=== PATIENT | male | born 1975 | race Hispanic/Latino ===

== ENCOUNTER 2025-01-24 15:38 | Inpatient (IN) | payer BC, OTHER ==
[~2025-01-24 15:38] MED LIST: Iopamidol-370 76% 500 ML MDV (1 ML CHARGE) ONE
[2025-01-24] MEDS ORDERED: cefTRIAXone (ROCEPHIN) 2 GM VIAL ONE (15:54)
[2025-01-24] MEDS ORDERED: Pantoprazole 40 MG VIAL ONE (15:54)
[2025-01-24] MEDS ORDERED: Octreotide Acetate 1,250 MCG in Sodium Chloride 0.9% 250 ML 250 ML IVPB SCH (16:15)
[2025-01-24 16:22] LABS: #Basophils Less than 0.03 10x3/uL (0.0-0.2); #Eosinophils 0.04 10x3/uL (0.0-0.7); #Monocytes 1.18 10x3/uL (0.11-0.59); #Neutrophils 8.19 10x3/uL (1.40-6.50); %Basophils 0.2 % (0.0-1.0); %Eosinophils 0.4 % (0.0-10.0); %Lymphocytes 9.6 % (21.0-51.0); %Monocytes 11.0 % (0.0-10.0); %Neutrophils 76.6 % (42.0-75.0); Hematocrit 19.2 % (42.0-52.0); Hemoglobin 5.2 g/dL (14.0-18.0); Mean Corpuscular Hemoglobin 24.4 pg (27.0-31.0); Mean Corpuscular Volume 90.1 fL (78.0-98.0); Platelet Count 117 10x3/uL (130-400); Red Blood Cell (RBC) Count 2.13 mill/uL (4.70-6.10); White Blood Cell (WBC) Count 10.68 10x3/uL (4.8-10.8)
[2025-01-24 16:23] LABS: INR-International Normal Ratio 2.2; Prothrombin Time 24.4 sec (12.0-14.7)
[2025-01-24 16:24] LABS: PTT 38.9 sec (22.9-36.1)
[2025-01-24 16:54] LABS: Anisocytosis SLIGHT = 6-15 cells HPF (0-5); Burr Cells SLIGHT = 2-5 cells HPF (0-1); Macrocytosis MODERATE=16-30 cells HPF (0-5); Microcytosis SLIGHT = 6-15 cells HPF (0-5); Ovalocytes SLIGHT = 2-5 cells HPF (0-1); Platelet Adequacy Comment Platelets Decreased; Polychromasia SLIGHT = 2-3 cells HPF (0-2); Reflex for Review?? YES; Schistocytes SLIGHT = 2-5 cells HPF (0-1)
[2025-01-24 17:04] LABS: ALT (SGPT) 28 U/L (Less than 45); AST (SGOT) 53 U/L (11-34); Albumin 1.7 g/dL (3.1-4.5); Alkaline Phosphatase 139 U/L (40-110); Anion Gap 36 mmol/L (10-20); BUN (Urea Nitrogen) 29 mg/dL (8.4-25.7); Bilirubin, Total 1.7 mg/dL (0.3-1.2); Calc. Creatinine Clearance 0 mL/min (70-130); Calcium 7.3 mg/dL (7.8-10.44); Carbon Dioxide Less than 8 mmol/L (22-29); Chloride 98 mmol/L (98-107); Globulin 2.6 g/dL (2.4-3.5); Glucose 336 mg/dL (70-105); Lipase 111 U/L (8-78); Magnesium 2.2 mg/dL (1.6-2.6); Potassium 3.7 mmol/L (3.5-5.1); Sodium 137 mmol/L (136-145)
[2025-01-24] MEDS ORDERED: Ondansetron PF 4 MG/2 ML Vial ONE ×2 (17:07→19:38)
[2025-01-24] MEDS ORDERED: Sodium Bicarb 50 MEQ/50 ML Abboject 8.4% SYRINGE ONE (17:26)
[2025-01-24 17:27] LABS: Actual Bicarbonate (HCO3a) 6.7 mEq/L (22-28); CO2 Tension 31.2 mmHg (35.0-45.0); O2 Tension (PaO2), arterial 82.9 mmHg (80.0-100.0); pH, Arterial 6.950 (7.35-7.45)
[2025-01-24 17:28] LABS: Base Excess (BEa) -23.9 mEq/L (-2.0 to +3.0); Calcium, Ionized (arterial) 0.93 mmol/L (1.12-1.30); Hematocrit-ABG 26 % (42.0-52.0); Hemoglobin (Hb) 8.8 g/dL (14.0-18.0); Potassium - ABG Lab 6.30 mmol/L (3.70-5.30)
[2025-01-24 17:29] LABS: Analyzer IN Cardio ER; Puncture Site Right Brachial art
[2025-01-24] MEDS ORDERED: Metoclopramide HCl 10 MG (2 mL) VIAL ONE (17:44)
[2025-01-24] MEDS ORDERED: Norepinephrine 8 MG/0.9% NS 250 ML ONE (18:06)
[2025-01-24] MEDS ORDERED: Etomidate 40 MG (20 mL) VIAL ONE (19:07)
[2025-01-24] MEDS ORDERED: Rocuronium Bromide 10 MG/ML (10ML VIAL) ONE ×2 (19:07→19:41)
[2025-01-24] MEDS ORDERED: fentaNYL PF 100 MCG/2 ML SYRINGE ONE (19:29)
[2025-01-24] MEDS ORDERED: Lidocaine 1% PF 5 ML VIAL ONE (19:30)
[2025-01-24] MEDS ORDERED: SUCCINYLCHOLINE/SOD CL,ISO/PF 200 MG/10 ML SYRINGE FS ONE (19:30)
[2025-01-24] MEDS ORDERED: PROPOFOL 200 MG/20 ML VIAL ONE (19:35)
[2025-01-24] MEDS ORDERED: PHENYLEPHRINE-NS 100 MCG/ML 10 ML SYRINGE ONE (20:03)
[2025-01-24 20:36] VITALS: BMI 26.2
[2025-01-24] MEDS: Pantoprazole 80 MG, Admixture Fee 1 EACH in Sodium Chloride 0.9% 100 ML IVPB SCH (21:07)
[2025-01-24] MEDS ORDERED: NOREPINEPHRINE 8 MG/250 ML-D5W 250 ML IVPB PRN (21:36)
[2025-01-24] MEDS ORDERED: Electrolyte Replacement Protocol 1 EACH IVPB SCH (21:36)
[2025-01-24] MEDS ORDERED: Acetaminophen 325 MG TAB PO PRN (21:56)
[2025-01-24] MEDS ORDERED: PHOS-NAK 1 PKT PACK PO PRN (22:00)
[2025-01-24] MEDS ORDERED: INSULIN REGULAR IN 0.9 % NACL 100 ML IVPB SCH (22:00)
[2025-01-24 22:10] LABS: Hematocrit 29.6 % (42.0-52.0); Hemoglobin 9.0 g/dL (14.0-18.0); Platelet Count 131 10x3/uL (130-400)
[2025-01-24 22:15] LABS: Anion Gap 32 mmol/L (10-20); BUN (Urea Nitrogen) 31 mg/dL (8.4-25.7); Calc. Creatinine Clearance 115 mL/min (70-130); Calcium 7.2 mg/dL (7.8-10.44); Carbon Dioxide 14 mmol/L (22-29); Chloride 105 mmol/L (98-107); Glucose 237 mg/dL (70-105); Potassium 4.0 mmol/L (3.5-5.1); Sodium 147 mmol/L (136-145)
[2025-01-24 22:42] LABS: Actual Bicarbonate (HCO3a) 13.2 mEq/L (22-28); Base Excess (BEa) -11.6 mEq/L (-2.0 to +3.0); CO2 Tension 26.8 mmHg (35.0-45.0); Calcium, Ionized (arterial) 0.94 mmol/L (1.12-1.30); Hematocrit-ABG 29 % (42.0-52.0); Hemoglobin (Hb) 9.9 g/dL (14.0-18.0); O2 Tension (PaO2), arterial 95.5 mmHg (80.0-100.0); Potassium - ABG Lab 3.67 mmol/L (3.70-5.30); pH, Arterial 7.311 (7.35-7.45)
[2025-01-24 22:43] LABS: Puncture Site Right Brachial art
[2025-01-24] MEDS ORDERED: Dextrose 50% Abboject 50 ML SYRINGE SLOW IVP PRN (22:45)
[2025-01-24] MEDS ORDERED: Glucagon 1 MG/ML KIT IM PRN (22:45)
[2025-01-24] MEDS: Albumin 25% 25 GM (100 mL) BOT IVPB SCH (23:15)
[2025-01-24] MEDS: CALCIUM GLUC 1 GM/NS 50 ML 1 GM in Premix 1 BAG IVPB SCH (23:16)
[2025-01-24 23:41] LABS: Hematocrit 28.1 % (42.0-52.0)
[2025-01-25] LABS: Hep A IgM AB NONREACTIVE (NonReactive); Hep A IgM S/CO 0.34 S/CO (0-0.79); Hep B Core IgM Index 0.09 S/CO (0-0.79); Hep B Surf Ag NONREACTIVE S/CO (NonReactive); Hep C IgG Ab NONREACTIVE S/CO (NonReactive); Hep C Index 0.15 S/CO (0-0.79)
[2025-01-25 04:45] LABS: #Basophils Less than 0.03 10x3/uL (0.0-0.2); #Eosinophils Less than 0.03 10x3/uL (0.0-0.7); #Monocytes 1.30 10x3/uL (0.11-0.59); #Neutrophils 8.58 10x3/uL (1.40-6.50); %Basophils 0.2 % (0.0-1.0); %Eosinophils 0.0 % (0.0-10.0); %Lymphocytes 9.0 % (21.0-51.0); %Monocytes 11.9 % (0.0-10.0); %Neutrophils 78.4 % (42.0-75.0); Hematocrit 21.4 % (42.0-52.0); Hemoglobin 7.0 g/dL (14.0-18.0); Mean Corpuscular Hemoglobin 26.0 pg (27.0-31.0); Mean Corpuscular Volume 79.6 fL (78.0-98.0); Platelet Count 83 10x3/uL (130-400); Red Blood Cell (RBC) Count 2.69 mill/uL (4.70-6.10); White Blood Cell (WBC) Count 10.95 10x3/uL (4.8-10.8)
[2025-01-25 04:55] LABS: ALT (SGPT) 42 U/L (Less than 45); AST (SGOT) 97 U/L (11-34); Albumin 2.2 g/dL (3.1-4.5); Alkaline Phosphatase 100 U/L (40-110); Anion Gap 24 mmol/L (10-20); BUN (Urea Nitrogen) 38 mg/dL (8.4-25.7); Bilirubin, Total 2.9 mg/dL (0.3-1.2); Calc. Creatinine Clearance 100 mL/min (70-130); Calcium 7.4 mg/dL (7.8-10.44); Carbon Dioxide 20 mmol/L (22-29); Chloride 101 mmol/L (98-107); Globulin 2.3 g/dL (2.4-3.5); Glucose 226 mg/dL (70-105); Potassium 3.7 mmol/L (3.5-5.1); Sodium 141 mmol/L (136-145)
[2025-01-25] MEDS: FLU (Fluarix Triv) 25-26 (6MOS UP)/PF 45 MCG/0.5 ML Syringe IM ONE (10:10)
[2025-01-25] MEDS: PNEUMOC 20-VAL CONJ-DIP CRM/PF 0.5 ML SYRINGE IM ONE (10:10)
[2025-01-25] MEDS: Mupirocin 1 GM TUBE NASAL DECOLONIZATION NASAL SCH (10:15)
[2025-01-25 11:46] LABS: #Basophils Less than 0.03 10x3/uL (0.0-0.2); #Eosinophils Less than 0.03 10x3/uL (0.0-0.7); #Monocytes 1.42 10x3/uL (0.11-0.59); #Neutrophils 7.46 10x3/uL (1.40-6.50); %Basophils 0.1 % (0.0-1.0); %Eosinophils 0.0 % (0.0-10.0); %Lymphocytes 9.5 % (21.0-51.0); %Monocytes 14.4 % (0.0-10.0); %Neutrophils 75.4 % (42.0-75.0); Hematocrit 23.2 % (42.0-52.0); Hemoglobin 7.5 g/dL (14.0-18.0); Mean Corpuscular Hemoglobin 25.7 pg (27.0-31.0); Mean Corpuscular Volume 79.5 fL (78.0-98.0); Platelet Count 74 10x3/uL (130-400); Red Blood Cell (RBC) Count 2.92 mill/uL (4.70-6.10); White Blood Cell (WBC) Count 9.89 10x3/uL (4.8-10.8)
[2025-01-25 12:14] LABS: Anisocytosis SLIGHT = 6-15 cells HPF (0-5); Burr Cells SLIGHT = 2-5 cells HPF (0-1); Microcytosis SLIGHT = 6-15 cells HPF (0-5); Platelet Adequacy Comment Platelets Decreased; Polychromasia MODERATE = 3-4 cells HPF (0-2); Target Cells SLIGHT = 2-5 cells HPF (0-1)
[2025-01-25] MEDS: Pantoprazole 80 MG, Admixture Fee 1 EACH in Sodium Chloride 0.9% 100 ML IVPB SCH (14:26)
[2025-01-25] MEDS: cefTRIAXone\\ROCEPHIN 1 GM in Sodium Chloride 0.9% 100 ML IVPB SCH (16:52)
[2025-01-25 17:17] LABS: #Basophils Less than 0.03 10x3/uL (0.0-0.2); #Eosinophils Less than 0.03 10x3/uL (0.0-0.7); #Monocytes 1.41 10x3/uL (0.11-0.59); #Neutrophils 7.91 10x3/uL (1.40-6.50); %Basophils 0.2 % (0.0-1.0); %Eosinophils 0.0 % (0.0-10.0); %Lymphocytes 12.8 % (21.0-51.0); %Monocytes 13.1 % (0.0-10.0); %Neutrophils 73.6 % (42.0-75.0); Hematocrit 22.9 % (42.0-52.0); Hemoglobin 7.4 g/dL (14.0-18.0); Mean Corpuscular Hemoglobin 25.7 pg (27.0-31.0); Mean Corpuscular Volume 79.5 fL (78.0-98.0); Platelet Count 74 10x3/uL (130-400); Red Blood Cell (RBC) Count 2.88 mill/uL (4.70-6.10); White Blood Cell (WBC) Count 10.75 10x3/uL (4.8-10.8)
[2025-01-25 18:06] LABS: Anisocytosis SLIGHT = 6-15 cells HPF (0-5); Burr Cells SLIGHT = 2-5 cells HPF (0-1); Macrocytosis SLIGHT = 6-15 cells HPF (0-5); Microcytosis SLIGHT = 6-15 cells HPF (0-5); Platelet Adequacy Comment Platelets Decreased; Polychromasia SLIGHT = 2-3 cells HPF (0-2); Stomatocytes SLIGHT = 2-5 cells HPF (0-1)
[2025-01-26 04:26] LABS: #Basophils Less than 0.03 10x3/uL (0.0-0.2); #Eosinophils Less than 0.03 10x3/uL (0.0-0.7); #Monocytes 1.65 10x3/uL (0.11-0.59); #Neutrophils 8.24 10x3/uL (1.40-6.50); %Basophils 0.1 % (0.0-1.0); %Eosinophils 0.0 % (0.0-10.0); %Lymphocytes 9.9 % (21.0-51.0); %Monocytes 14.9 % (0.0-10.0); %Neutrophils 74.6 % (42.0-75.0); Hematocrit 23.1 % (42.0-52.0); Hemoglobin 7.4 g/dL (14.0-18.0); Mean Corpuscular Hemoglobin 26.0 pg (27.0-31.0); Mean Corpuscular Volume 81.1 fL (78.0-98.0); Platelet Count 77 10x3/uL (130-400); Red Blood Cell (RBC) Count 2.85 mill/uL (4.70-6.10); White Blood Cell (WBC) Count 11.06 10x3/uL (4.8-10.8)
[2025-01-26 04:40] LABS: ALT (SGPT) 45 U/L (Less than 45); AST (SGOT) 109 U/L (11-34); Albumin 2.9 g/dL (3.1-4.5); Alkaline Phosphatase 78 U/L (40-110); Anion Gap 21 mmol/L (10-20); BUN (Urea Nitrogen) 25 mg/dL (8.4-25.7); Bilirubin, Total 3.5 mg/dL (0.3-1.2); Calc. Creatinine Clearance 138 mL/min (70-130); Calcium 7.9 mg/dL (7.8-10.44); Carbon Dioxide 24 mmol/L (22-29); Chloride 106 mmol/L (98-107); Globulin 1.9 g/dL (2.4-3.5); Glucose 140 mg/dL (70-105); Potassium 3.5 mmol/L (3.5-5.1); Sodium 147 mmol/L (136-145)
[2025-01-26] MEDS: Multivit, Therapeutic 1 TAB PO SCH (09:01)
[2025-01-26] MEDS: Folic Acid 1 MG TAB PO SCH (09:01)
[2025-01-26] MEDS: Benzocaine/Menthol 1 LOZ LOZ PO PRN (09:01)
[2025-01-26] MEDS: Octreotide Acetate 1,250 MCG in Sodium Chloride 0.9% 250 ML 250 ML IVPB SCH (10:36)
[2025-01-26] MEDS ORDERED: Lidocaine 1% w/Epinephrine 1:100K 20 ML VIAL ONE (14:52)
[2025-01-26] MEDS ORDERED: Lidocaine 1% PF 5 ML VIAL ONE (14:52)
[2025-01-26] MEDS ORDERED: Sodium Bicarbonate 2.5 MEQ/5 ML SDV ONE (14:52)
[2025-01-26] MEDS: Carvedilol 3.125 MG TAB PO SCH (17:02)
[2025-01-26 17:13] LABS: RBC Count-Automated (BF) 103 /cu.mm; WBC/Nucleated-Auto (BF) 113 /cu.mm
[2025-01-26 18:28] LABS: Fluid, Amylase 49 U/L (Not Available); Fluid, Bilirubin Total 0.2 mg/dL (Not Available); Fluid, Glucose 215 mg/dL (Not Available); Fluid, LDH 32 U/L (Not Available); Fluid, Protein Less than 0.8 g/dL (Not Available); Fluid, Triglycerides 16 mg/dL (Not Available)
[2025-01-26 19:22] LABS: BF Segmented Neutrophils 15 %; Cell Count Non Hematic 70 %
[2025-01-27 04:56] LABS: #Basophils Less than 0.03 10x3/uL (0.0-0.2); #Eosinophils 0.03 10x3/uL (0.0-0.7); #Monocytes 1.51 10x3/uL (0.11-0.59); #Neutrophils 5.25 10x3/uL (1.40-6.50); %Basophils 0.2 % (0.0-1.0); %Eosinophils 0.4 % (0.0-10.0); %Lymphocytes 16.1 % (21.0-51.0); %Monocytes 18.6 % (0.0-10.0); %Neutrophils 64.5 % (42.0-75.0); Hematocrit 22.6 % (42.0-52.0); Hemoglobin 7.2 g/dL (14.0-18.0); Mean Corpuscular Hemoglobin 26.5 pg (27.0-31.0); Mean Corpuscular Volume 83.1 fL (78.0-98.0); Platelet Count 76 10x3/uL (130-400); Red Blood Cell (RBC) Count 2.72 mill/uL (4.70-6.10); White Blood Cell (WBC) Count 8.14 10x3/uL (4.8-10.8)
[2025-01-27 05:00] LABS: Anion Gap 17 mmol/L (10-20); BUN (Urea Nitrogen) 18 mg/dL (8.4-25.7); Calc. Creatinine Clearance 150 mL/min (70-130); Calcium 7.8 mg/dL (7.8-10.44); Carbon Dioxide 22 mmol/L (22-29); Chloride 103 mmol/L (98-107); Glucose 174 mg/dL (70-105); Magnesium 2.3 mg/dL (1.6-2.6); Potassium 3.4 mmol/L (3.5-5.1); Sodium 139 mmol/L (136-145)
[2025-01-27] MEDS: Ondansetron PF 4 MG/2 ML Vial IVP PRN (09:26)
[2025-01-27] MEDS: Potassium Chloride 20 MEQ in Premix 1 BAG IVPB PRN (09:28)
[2025-01-27] MEDS: Pantoprazole 40 MG DR.TAB PO SCH (20:20)
[2025-01-27] MEDS ORDERED: Pantoprazole 40 MG VIAL IVP SCH (21:00)
[2025-01-28 04:52] LABS: #Basophils Less than 0.03 10x3/uL (0.0-0.2); #Eosinophils 0.07 10x3/uL (0.0-0.7); #Monocytes 1.43 10x3/uL (0.11-0.59); #Neutrophils 4.56 10x3/uL (1.40-6.50); %Basophils 0.3 % (0.0-1.0); %Eosinophils 0.9 % (0.0-10.0); %Lymphocytes 18.3 % (21.0-51.0); %Monocytes 19.1 % (0.0-10.0); %Neutrophils 61.0 % (42.0-75.0); Hematocrit 22.8 % (42.0-52.0); Hemoglobin 7.2 g/dL (14.0-18.0); Mean Corpuscular Hemoglobin 26.1 pg (27.0-31.0); Mean Corpuscular Volume 82.6 fL (78.0-98.0); Platelet Count 83 10x3/uL (130-400); Red Blood Cell (RBC) Count 2.76 mill/uL (4.70-6.10); White Blood Cell (WBC) Count 7.48 10x3/uL (4.8-10.8)
[2025-01-28 05:06] LABS: ALT (SGPT) 53 U/L (Less than 45); AST (SGOT) 90 U/L (11-34); Albumin 2.5 g/dL (3.1-4.5); Alkaline Phosphatase 106 U/L (40-110); Anion Gap 10 mmol/L (10-20); BUN (Urea Nitrogen) 14 mg/dL (8.4-25.7); Bilirubin, Total 3.2 mg/dL (0.3-1.2); Calc. Creatinine Clearance 172 mL/min (70-130); Calcium 7.6 mg/dL (7.8-10.44); Carbon Dioxide 27 mmol/L (22-29); Chloride 103 mmol/L (98-107); Globulin 2.2 g/dL (2.4-3.5); Glucose 166 mg/dL (70-105); Magnesium 2.1 mg/dL (1.6-2.6); Potassium 3.2 mmol/L (3.5-5.1); Sodium 137 mmol/L (136-145)
[2025-01-28] MEDS: Thiamine 100 MG TAB PO SCH (12:33)
[2025-01-28 15:38] LABS: Albumin, Fluid 0.2 g/dL (Not Estab.)
[2025-01-28] MEDS: Carvedilol 6.25 MG TAB PO SCH (16:37)
[2025-01-29 05:31] LABS: Hematocrit 23.8 % (42.0-52.0); Hemoglobin 7.5 g/dL (14.0-18.0); Mean Corpuscular Hemoglobin 26.0 pg (27.0-31.0); Mean Corpuscular Volume 82.6 fL (78.0-98.0); Platelet Count 97 10x3/uL (130-400); Red Blood Cell (RBC) Count 2.88 mill/uL (4.70-6.10); White Blood Cell (WBC) Count 7.15 10x3/uL (4.8-10.8)
[2025-01-29 05:43] LABS: Anion Gap 9 mmol/L (10-20); BUN (Urea Nitrogen) 9 mg/dL (8.4-25.7); Calc. Creatinine Clearance 203 mL/min (70-130); Calcium 7.4 mg/dL (7.8-10.44); Carbon Dioxide 24 mmol/L (22-29); Chloride 103 mmol/L (98-107); Glucose 208 mg/dL (70-105); Magnesium 1.9 mg/dL (1.6-2.6); Potassium 3.2 mmol/L (3.5-5.1); Sodium 133 mmol/L (136-145)
[2025-01-29 05:59] LABS: Anisocytosis SLIGHT = 6-15 cells HPF (0-5); Nucleated RBC (Manual Ct) 2 % (0); Platelet Adequacy Comment Platelets Decreased; Polychromasia SLIGHT = 2-3 cells HPF (0-2); Target Cells SLIGHT = 2-5 cells HPF (0-1)
[2025-01-29] MEDS: Magnesium 2 GM/50 ML(in water) 2 GM in Premix 1 BAG IVPB PRN (09:03)
[2025-01-29 13:30] LABS: ALT (SGPT) 50 U/L (Less than 45); AST (SGOT) 77 U/L (11-34); Albumin 2.4 g/dL (3.1-4.5); Alkaline Phosphatase 136 U/L (40-110); Anion Gap 14 mmol/L (10-20); BUN (Urea Nitrogen) 9 mg/dL (8.4-25.7); Bilirubin, Total 2.6 mg/dL (0.3-1.2); Calc. Creatinine Clearance 217 mL/min (70-130); Calcium 7.4 mg/dL (7.8-10.44); Carbon Dioxide 20 mmol/L (22-29); Chloride 105 mmol/L (98-107); Globulin 2.6 g/dL (2.4-3.5); Glucose 247 mg/dL (70-105); Potassium 3.8 mmol/L (3.5-5.1); Sodium 135 mmol/L (136-145)
[2025-01-29 16:01] VITALS: BP 116/71
[2025-01-29 18:12] VITALS: TEMP 98.9
[2025-01-30 18:13] LABS: Lipase-Fluid 236.0 U/L (.)
== END 2025-01-29 18:00 | disposition home or self-care (01) | DRG 432 ==
LOC: ERS 15:38 → SDC 19:22 → CCU 20:21 → IMCU/EMU 01-25 20:51 → MSONC 01-27 18:06
PROVIDERS: ADMIT Student in an Organized Health Care Education/Training Program; ATTEND Hospitalist
PROC: 06L38CZ Occlusion of Esophageal Vein with Extraluminal Device, Via Natural or Artificial Opening Endoscopic (ICD-10-PCS; principal; 2025-01-24)
PROC: 30243N1 Transfusion of Nonautologous Red Blood Cells into Central Vein, Percutaneous Approach (ICD-10-PCS; 2025-01-24)
PROC: 4A133R1 Monitoring of Arterial Saturation, Peripheral, Percutaneous Approach (ICD-10-PCS; 2025-01-24)
PROC: 3E033XZ Introduction of Vasopressor into Peripheral Vein, Percutaneous Approach (ICD-10-PCS; 2025-01-24)
PROC: 3E03329 Introduction of Other Anti-infective into Peripheral Vein, Percutaneous Approach (ICD-10-PCS; 2025-01-24)
PROC: 30233J1 Transfusion of Nonautologous Serum Albumin into Peripheral Vein, Percutaneous Approach (ICD-10-PCS; 2025-01-24)
PROC: 3E04329 Introduction of Other Anti-infective into Central Vein, Percutaneous Approach (ICD-10-PCS; 2025-01-24)
PROC: 3E043XZ Introduction of Vasopressor into Central Vein, Percutaneous Approach (ICD-10-PCS; 2025-01-24)
PROC: 3E02340 Introduction of Influenza Vaccine into Muscle, Percutaneous Approach (ICD-10-PCS; 2025-01-24)
PROC: 3E0234Z Introduction of Serum, Toxoid and Vaccine into Muscle, Percutaneous Approach (ICD-10-PCS; 2025-01-24)
PROC: 05HM33Z Insertion of Infusion Device into Right Internal Jugular Vein, Percutaneous Approach (ICD-10-PCS; 2025-01-24)
PROC: B5131ZA Fluoroscopy of Right Jugular Veins using Low Osmolar Contrast, Guidance (ICD-10-PCS; 2025-01-24)
PROC: 0W9G3ZX Drainage of Peritoneal Cavity, Percutaneous Approach, Diagnostic (ICD-10-PCS; 2025-01-26)
DX: K70.10 Alcoholic hepatitis without ascites (principal); I85.11 Secondary esophageal varices with bleeding; R57.8 Other shock; E87.20 Acidosis, unspecified; I85.10 Secondary esophageal varices without bleeding; K92.2 Gastrointestinal hemorrhage, unspecified; K76.6 Portal hypertension; D62 Acute posthemorrhagic anemia; E87.0 Hyperosmolality and hypernatremia; R18.8 Other ascites; E11.9 Type 2 diabetes mellitus without complications; I10 Essential (primary) hypertension; E78.00 Pure hypercholesterolemia, unspecified; F10.20 Alcohol dependence, uncomplicated; E88.09 Other disorders of plasma-protein metabolism, not elsewhere classified; D69.59 Other secondary thrombocytopenia; E66.01 Morbid (severe) obesity due to excess calories; K31.89 Other diseases of stomach and duodenum; Z79.899 Other long term (current) drug therapy; Z79.84 Long term (current) use of oral hypoglycemic drugs; Z79.01 Long term (current) use of anticoagulants; Z23 Encounter for immunization
CPT/HCPCS: 36415; 36416; 36430; 36556; 36600; 49083; 71045; 74177; 76705; 80048; 80053; 80074; 82042; 82150; 82247; 82378; 82570; 82805; 82945; 83036; 83605; 83615; 83690; 83735; 83880; 83986; 84157; 84478; 84484; 85025; 85060; 85610; 85730; 86850; 86900; 86901; 87040; 87070; 87205; 89051; 93005; 96361; 96365; 96366; 96367; 96368; 96375; 96376; 99292; J0613; J0696; J1100; J1815; J2354; J2405; J2470; J2704; J2765; J3411; J3475; J3480; J7050; J7120; P9016; P9047; Q0162; Q9967

== ENCOUNTER 2025-02-25 06:14 | Day surgery (SDC) | payer OTHER ==
[2025-02-24 11:22] VITALS: BMI 17.4
[2025-02-25] MEDS ORDERED: Ketamine In 0.9 % NaCl 50 MG/5 ML SYRINGE ONE (06:57)
[2025-02-25] MEDS ORDERED: Lidocaine 1% PF 5 ML VIAL ONE (07:00)
[2025-02-25] MEDS ORDERED: PROPOFOL 200 MG/20 ML VIAL ONE (07:48)
== END 2025-02-25 08:46 | disposition home or self-care (01) ==
LOC: SDC 06:14
PROVIDERS: ATTEND Student in an Organized Health Care Education/Training Program
PROC: 0DJ08ZZ Inspection of Upper Intestinal Tract, Via Natural or Artificial Opening Endoscopic (ICD-10-PCS; principal; 2025-02-25)
DX: I85.00 Esophageal varices without bleeding (principal); I10 Essential (primary) hypertension; E11.9 Type 2 diabetes mellitus without complications; K70.30 Alcoholic cirrhosis of liver without ascites; F10.90 Alcohol use, unspecified, uncomplicated
CPT/HCPCS: J2704; J3490